=== PATIENT | male | born 1945 | race Caucasian/White ===

== ENCOUNTER → 2016-08-03 | Outpatient (CLI) | payer BC ==
[2016-08-03 15:49] LABS: CH 30.4; CHCM 32.6; HCT 41.3 % (39.0-53.0); HDW 2.29; HGB 13.4 gm/dL (13.0-17.5); MCH 30.3 pg (25.0-35.0); MCHC 32.4 g/dL (31.0-37.0); MCV 93.7 fL (80.0-100.0); Mean Platelet Volume 7.5; RDW 13.2 % (11.5-15.5); WBC 5.6 k/uL (3.8-10.6)
[2016-08-03 15:58] LABS: ALT 28 U/L (21-72); AST 34 U/L (17-59); Alkaline Phosphatase 77 U/L (38-126); Anion Gap 9 mmol/L; Blood Urea Nitrogen 25 mg/dL (9-20); Calcium 10.1 mg/dL (8.4-10.2); Carbon Dioxide 29 mmol/L (22-30); Chloride 103 mmol/L (98-107); Glucose 105 mg/dL (74-99); Non-African American GFR(MDRD) >60 (>60 ml/min/1.73 sqM); Potassium 5.5 mmol/L (3.5-5.1); Sodium 141 mmol/L (137-145); Total Bilirubin 0.7 mg/dL (0.2-1.3); Total Protein 7.8 g/dL (6.3-8.2)
== END ==
LOC: LABWHC1 15:10
PROVIDERS: ATTEND Surgery
DX: R19.7 Diarrhea, unspecified (principal)
CPT/HCPCS: 36415; 80053; 85027; 87045; 87046; 89055

== ENCOUNTER → 2016-11-03 | Outpatient (CLI) | payer BC ==
--- NOTE | 2016-11-03 13:00 | XR ---
EXAMINATION TYPE: XR abdomen 1V DATE OF EXAM: 11/03/2016 COMPARISON: NONE INDICATION: Flank pain increasing TECHNIQUE: Single view abdomen frontal projection FINDINGS: There is a normal bowel gas pattern. Psoas margins are normal. No organomegaly is present. Penile prosthesis is present. No suspicious calcifications are identified. Degenerative changes are through the lumbar facets. IMPRESSION: 1. Nonspecific abdomen.
== END | disposition home or self-care (01) ==
LOC: RADXRYALE 08:35
PROVIDERS: ATTEND Internal Medicine
DX: R10.9 Unspecified abdominal pain (principal)
CPT/HCPCS: 74000

== ENCOUNTER → 2017-07-19 | Outpatient (CLI) | payer BC ==
--- NOTE | 2017-07-19 15:11 | XR ---
EXAMINATION TYPE: XR chest 2V DATE OF EXAM: 07/19/2017 COMPARISON: None HISTORY: 72-year-old male cough and right shoulder pain TECHNIQUE: Frontal and lateral views FINDINGS: The cardiomediastinal silhouette, aorta, and pulmonary vasculature are within normal limits. Prominen t right first rib end. Lungs And pleural spaces are clear. Anterior endplate spondylosis upper to mid Lasix spine. IMPRESSION: No acute cardiopulmonary process.
--- NOTE | 2017-07-19 15:13 | XR ---
EXAMINATION TYPE: XR shoulder complete RT DATE OF EXAM: 07/19/2017 COMPARISON: NONE HISTORY: 72 year-old male right shoulder pain TECHNIQUE: 3 views FINDINGS: Apparent loss of the subacromial space may be due to projection. There is moderate degenerative knutson e at the AC joint. Prominent bony irregularity of the greater tuberosity. Degenerative spurring at th e glenohumeral joint. Probable loose body in the subcoracoid recess. No acute fracture or dislocation seen. IMPRESSION: 1. Apparent loss of the subacromial space may be secondary to positional artifact. If this space is t scott narrowed, findings would suggest a full-thickness rotator cuff tear. Consider MRI to further ankur luate. 2. There are changes of chronic rotator cuff tendinopathy along with moderate AC joint OA as well as underlying glenohumeral joint osteoarthrosis.
== END | disposition home or self-care (01) ==
LOC: RADXRYALE 14:45
PROVIDERS: ATTEND Internal Medicine
DX: M19.011 Primary osteoarthritis, right shoulder (principal); M67.813 Other specified disorders of tendon, right shoulder; R05 Cough
CPT/HCPCS: 71046

== ENCOUNTER → 2018-01-29 | Outpatient (CLI) | payer BC ==
--- NOTE | 2018-01-29 09:31 | ECHOF ---
Referral Reason:R07.89 Chest pressure MEASUREMENTS -------- HEIGHT: 172.7 cm WEIGHT: 93.0 kg BP: 135/65 RVIDd: 3.5 cm (< 3.3) IVSd: 1.2 cm (0.6 - 1.1) LVIDd: 4.6 cm (3.9 - 5.3) LVPWd: 1.2 cm (0.6 - 1.1) IVSs: 1.6 cm LVIDs: 3.3 cm LVPWs: 1.9 cm LA Diam: 3.7 cm (2.7 - 3.8) LAESV Index (A-L): 32.19 ml/m Ao Diam: 3.8 cm (2.0 - 3.7) AV Cusp: 2.3 cm (1.5 - 2.6) MV EXCURSION: 21.388 mm (> 18.000) MV EF SLOPE: 119 mm/s (70 - 150) EPSS: 0.1 cm MV E [place]: 0.67 m/s MV DecT: 252 ms MV A [place]: 0.60 m/s MV E/A Ratio: 1.12 RAP: 5.00 mmHg RVSP: 18.61 mmHg FINDINGS -------- Sinus rhythm. This was a technically good study. The left ventricular size is normal. There is borderline concentric left ventricular hypertrophy. Overall left ventricular systolic function is normal with, an EF between 55 - 60 %. The right ventricle is mildly enlarged. LA is midly dilated 29-33ml/m2. The right atrium is normal in size. The aortic valve is trileaflet and appears structurally normal. Trace amount of aortic regurgitatio n. The mitral valve is normal. Mild tricuspid regurgitation present. Right ventricular systolic pressure is normal at < 35 mmHg. Trace/mild (physiologic) pulmonic regurgitation. The aortic root is dilated measuring 3.8cm. Normal inferior vena cava with normal inspiratory collapse consistent with estimated right atrial pre ssure of 5 mmHg. There is no pericardial effusion. CONCLUSIONS -------- 1. Sinus rhythm. 2. This was a technically good study. 3. The left ventricular size is normal. 4. There is borderline concentric left ventricular hypertrophy. 5. Overall left ventricular systolic function is normal with, an EF between 55 - 60 %. 6. The right ventricle is mildly enlarged. 7. LA is midly dilated 29-33ml/m2. 8. The right atrium is normal in size. 9. The aortic valve is trileaflet and appears structurally normal. 10. Trace amount of aortic regurgitation. 11. The mitral valve is normal. 12. Mild tricuspid regurgitation present. 13. Right ventricular systolic pressure is normal at < 35 mmHg. 14. Trace/mild (physiologic) pulmonic regurgitation. 15. The aortic root is dilated measuring 3.8cm. 16. Normal inferior vena cava with normal inspiratory collapse consistent with estimated right atrial pressure of 5 mmHg. 17. There is no pericardial effusion. SOCIAL WORK CASE MANAGER: Leonora Baltazar RDCS
--- NOTE | 2018-01-29 09:37 | P.STRESS ---
- Stress Test Note Stress Test Results/Findings: Exam Performed: stress test Exam Date: 01/29/18 Reason for Exam: CHEST PAIN Height: 5 ft 8 in Weight: 92.986 kg Protocol: REAGAN Stage: 3 Duration of Exercise: 6:30 Resting Heart Rate: 59 Resting Blood Pressure: 123/74 Maximum Achieved Heart Rate: 129 Maximum Achieved Blood Pressure: 205/59 85% PMHR: 128 100% PMHR: 150 METS: 7.7 Technologist Comment: Stress Test Results/Findings: This is a 72-year-old gentleman being evaluated for chest pains and also as a preop evaluation. Stress data: Baseline EKG showed a sinus rhythm with normal MA interval and QRS duration. Patient said blood pressure is 123/74 with a pulse rate of 59 at rest. Patient walked on the Reagan protocol for 6 minutes and 30 seconds achieving a maximal heart rate of 129 with a blood pressure 158/82. Patient is achieved 86% of his predicted heart rate. EKGs taken during and after exercise did not reveal any significant changes from the baseline. Occasional PVCs couplets noted. Final impression: #1. Negative stress test #2. Occasional PVCs during this test. #3. Patient did not express any chest pain #4. Average exercise capacity.
--- NOTE | 2018-01-31 12:18 | EST ---
Stress Test Results/Findings: Exam Performed: stress test Exam Date: 01/29/18 Reason for Exam: CHEST PAIN Height: 5 ft 8 in Weight: 92.986 kg Protocol: REAGAN Stage: 3 Duration of Exercise: 6:30 Resting Heart Rate: 59 Resting Blood Pressure: 123/74 Maximum Achieved Heart Rate: 129 Maximum Achieved Blood Pressure: 205/59 85% PMHR: 128 100% PMHR: 150 METS: 7.7 Technologist Comment: Stress Test Results/Findings: This is a 72-year-old gentleman being evaluated for chest pains and also as a preop evaluation. Stress data: Baseline EKG showed a sinus rhythm with normal RI interval and QRS duration. Patient said blood pressure is 123/74 with a pulse rate of 59 at rest. Patient walked on the Reagan protocol for 6 minutes and 30 seconds achieving a maximal heart rate of 129 with a blood pressure 158/82. Patient is achieved 86% of his predicted heart rate. EKGs taken during and after exercise did not reveal any significant changes from the baseline. Occasional PVCs couplets noted. Final impression: #1. Negative stress test #2. Occasional PVCs during this test. #3. Patient did not express any chest pain #4. Average exercise capacity. MTDD
== END | disposition home or self-care (01) ==
LOC: RADECHMAIN 08:15
PROVIDERS: ATTEND Internal Medicine
DX: I07.1 Rheumatic tricuspid insufficiency (principal); I37.1 Nonrheumatic pulmonary valve insufficiency
CPT/HCPCS: 93017; 93306

== ENCOUNTER → 2018-04-17 | Outpatient (CLI) | payer BC ==
--- NOTE | 2018-04-17 11:38 | US ---
EXAMINATION TYPE: US kidneys/renal and bladder DATE OF EXAM: 04/17/2018 COMPARISON: CT 09/07/2014 CLINICAL HISTORY: R10.9 Acute right flank pain N20.0 Kidney stones. EXAM MEASUREMENTS: Right Kidney: 10.5 x 4.7 x 5.1 cm Left Kidney: 9.8 x 4.8 x 4.0 cm Right Kidney: No hydronephrosis. Multiple cystic areas visualized, largest measuring 5.2 x 5.6 x 5.1 cm Left Kidney: No hydronephrosis. No cystic or solid area visualized. Echogenic area visualized measuri ng 0.3 cm, possible nonobstructing foci Bladder: Probable diverticulum visualized measuring 4.8 x 5.1 x 5.2 cm Bilateral Jets seen: Yes IMPRESSION: No hydronephrosis is evident bilaterally. Possible 3 mm nonobstructing calculus left kidn ey on ultrasound. Prior CT showed small calculi bilaterally measuring under 3 mm in size would be dif ficult to visualize under ultrasound. Suspect passage of tiny calculus into right ureter not causing significant right-sided hydronephrosis.
== END | disposition home or self-care (01) ==
LOC: RADUSWWP 10:53
PROVIDERS: ATTEND Internal Medicine
DX: R10.9 Unspecified abdominal pain (principal)
CPT/HCPCS: 76770

== ENCOUNTER → 2018-05-26 | Outpatient (CLI) | payer BC ==
--- NOTE | 2018-05-26 14:08 | MR ---
EXAMINATION TYPE: MR brain wo/w con DATE OF EXAM: 05/26/2018 COMPARISON: None HISTORY: Diplopia TECHNIQUE: Multiplanar, multisequence images of the brain and brainstem is performed without and with IV contras t, utilizing 9.5 mL intravenous Gadavist . FINDINGS: Diffusion weighted images demonstrate no evidence of a recent infarct or other diffusion ab normality. Craniocervical junction is maintained. Sella turcica has a normal appearance. There is no enhancing mass or mass effect. No midline shift. There is changes of chronic sinusitis. Mild generalized degenerative change with numerous focal areas of abnormal signal the white matter are not as cystic but most typical remote microvascular ischemia . No cerebellopontine angle mass. There is a trace amount of fluid surrounding the optic nerves. IMPRESSION: 1. Degenerative and nonspecific white matter changes most typical remote microvascular ischemia. 2. Trace amount of fluid surrounding the optic nerves. This can occasionally be associated with benig n increased intracranial hypertension correlate clinically. 3. Changes of chronic sinusitis
== END | disposition home or self-care (01) ==
LOC: RADMRIMAIN 08:17
PROVIDERS: ATTEND Ophthalmology
DX: R90.89 Other abnormal findings on diagnostic imaging of central nervous system (principal)
CPT/HCPCS: 82565; 70553; 36415; A9585

== ENCOUNTER → 2023-06-15 | Outpatient (CLI) | payer MEDICARE, BC ==
--- NOTE | 2023-06-15 11:05 | US ---
EXAMINATION TYPE: US abdomen complete DATE OF EXAM: 06/15/2023 COMPARISON: Renal US 04/17/2018 CLINICAL INDICATION: Male, 78 years old with history of R10.9 UNSPECIFIED ABDOMINAL PAIN; TECHNIQUE: Epigastric pain x few months FINDINGS: EXAM MEASUREMENTS: Liver Length: 13.2 cm Gallbladder Wall: 0.2 cm CBD: 0.3 cm Spleen: 9.7 cm Right Kidney: 12.2 x 4.0 x 4.2 cm Left Kidney: 10.0 x 4.8 x 3.9 cm [employer]ILER [employer] WORKER NOTES: Pancreas: Tail obscured by overlying bowel gas Liver: wnl Gallbladder: wnl Evidence for sonographic Solorzano's sign: No CBD: wnl Spleen: wnl Right Kidney: Multiple cysts redemonstrated, largest = 6.7 x 6.0 x 5.9 cm Left Kidney: Subcentimeter cyst noted Upper IVC: wnl Abd Aorta: wnl The liver is homogenous. The intrahepatic portion of the IVC and proximal abdominal aorta are within normal limits. There is no evidence of cholelithiasis. Common bile duct is unremarkable. The visu alized portions of the pancreas are homogenous. The spleen is unremarkable. Kidneys are symmetric a nd free of hydronephrosis. IMPRESSION: Renal cystic changes noted.
== END | disposition home or self-care (01) ==
LOC: RADUSWWP 10:21
PROVIDERS: ATTEND Internal Medicine
DX: N28.1 Cyst of kidney, acquired (principal)
CPT/HCPCS: 76700

== ENCOUNTER → 2023-06-22 | Outpatient (CLI) | payer MEDICARE, BC ==
[2023-06-22 14:29] LABS: African American GFR (CKD) 63 (>60 ml/min/1.73 sqM); Blood Urea Nitrogen 28 mg/dL (9-20); Non-African American GFR(CKD) 55 (>60 ml/min/1.73 sqM)
--- NOTE | 2023-06-22 16:09 | CT ---
EXAMINATION: CT ABDOMEN AND PELVIS WITHOUT AND WITH IV CONTRAST DATE OF EXAMINATION: 06/22/2023. COMPARISON: None available. INDICATION: Generalized abdominal pain. PROCEDURE: Axial CT of the abdomen and pelvis was performed without and with contrast and sagittal and coronal reformatted images were performed. CT dose lowering techniques were used, to include: aut omated exposure control, adjustment for patient size, and/or use of iterative reconstruction. 80 mL o f Isovue-300 was given intravenously. FINDINGS: LOWER CHEST : The visualized lung bases are clear. There are no pleural or pericardial effusions. ABDOMEN: Liver and Biliary system: Subcentimeter hypodensity is seen within the left lobe of liver that is to o small fully characterize. The liver otherwise appears unremarkable. Adrenal glands: Normal. Kidneys and ureters: 6.3 cm simple cyst in the upper pole of the right kidney 3 mm nonobstructing sto ne in the upper pole the left kidney. 1.6 cm simple cyst in the interpolar region of the left kidney. The kidneys otherwise appear unremarkable Spleen: Normal. Pancreas: Normal. Gallbladder: Normal. Lymph nodes, Peritoneum and mesentery: There is no mesenteric or retroperitoneal lymphadenopathy. Gastrointestinal tract: There are no dilated loops of bowel or free intraperitoneal air. There is nonspecific diffuse thickening of the gastric wall of indeterminate etiology. Malignancy would be in the differential diagnosis and considered direct visualization. There is mild to moderate descending colonic and sigmoid colonic diverticulosis without evidence of diverticulitis. Aorta/IVC: There is mild vascular calcification throughout the abdominal aorta without evidence of aneurysmal dilation or dissection. IVC normal. Abdominal wall: Normal. PELVIS: Fluid: There is no free fluid in the pelvis. Lymph Nodes: There is no pelvic or inguinal lymphadenopathy.. Urinary bladder: Normal. BONES: Multilevel degenerative disc and facet changes are seen throughout the spine. There are no ac chaim osseous abnormalities. ADDITIONAL SIGNIFICANT FINDINGS: Penile implant is seen. IMPRESSION: 1. Diffuse thickening of the gastric wall is of indeterminate etiology. Malignancy would be in the di fferential diagnosis and must be excluded. Direct visualization and GI consult recommended. Gastritis would be a consideration as well, however there is no significant surrounding inflammatory changes. 2. Nonobstructing left renal stone. 3. Diverticulosis without evidence of diverticulitis.
== END | disposition home or self-care (01) ==
LOC: RADCTMAIN 13:46
PROVIDERS: ATTEND Internal Medicine
DX: K57.30 Diverticulosis of large intestine without perforation or abscess without bleeding (principal); K31.89 Other diseases of stomach and duodenum; N20.0 Calculus of kidney; N28.1 Cyst of kidney, acquired
CPT/HCPCS: 82565; 84520; 74178; 36415; Q9967

== ENCOUNTER → 2023-12-26 | Outpatient (CLI) | payer MEDICARE, BC | END | disposition home or self-care (01) | LOC: LABPRL 10:45 | PROVIDERS: ATTEND Internal Medicine Hematology & Oncology | DX: D64.81 Anemia due to antineoplastic chemotherapy (principal) | CPT/HCPCS: 86850; 86900; 86901 ==

== ENCOUNTER 2024-02-11 13:21 | Emergency (ER) | payer MEDICARE, BC ==
[2024-02-11 13:30] VITALS: TEMP 99
--- NOTE | 2024-02-11 14:27 | US ---
EXAMINATION TYPE: US venous doppler duplex LE LT DATE OF EXAM: 02/11/2024 2:21 PM COMPARISON: NONE CLINICAL INDICATION: Male, 78 years old with history of pain; No hx of DVT. Pain. SIDE PERFORMED: Left TECHNIQUE: The lower extremity deep venous system is examined utilizing real time linear array sonog axel with graded compression, color doppler sonography, and spectral doppler. VESSELS IMAGED: Common Femoral Vein Deep Femoral Vein Greater Saphenous Vein * Femoral Vein Popliteal Vein Small Saphenous Vein * Proximal Calf Veins (* superficial vessels) Left Leg: No evidence of DVT. IMPRESSION: [facility], , 02/11/2024 2:24 PM
[2024-02-11 14:33] VITALS: BP 147/69; PULSE 64; RESP 18
--- NOTE | 2024-02-11 14:58 | XR ---
EXAMINATION TYPE: XR tibia fibula LT DATE OF EXAM: 02/11/2024 2:51 PM CLINICAL INDICATION: Male, 78 years old with history of pain; [facility] COMPARISON: None TECHNIQUE: XR tibia fibula LT; examined in AP and lateral projections. FINDINGS: No evidence of any acute osseous pathology, joint dislocation, or soft tissue swelling is n oted. Total knee arthroplasty changes appear intact. Calcaneal Achilles spurring present. Mild diffus e soft tissue swelling. Multifocal degeneration changes of the joints of the foot with joint space na rrowing and osteophyte formation. IMPRESSION: 1. No evidence of acute fracture. 2. Diffuse soft tissue swelling throughout the leg without evidence of osseous erosion. [facility], , 02/11/2024 2:56 PM
--- NOTE | 2024-02-11 14:59 | XR ---
EXAMINATION TYPE: XR foot complete LT DATE OF EXAM: 02/11/2024 2:50 PM CLINICAL INDICATION: Male, 78 years old with history of pain; COMPARISON: None TECHNIQUE: XR foot complete LT examined in the AP, oblique, and lateral projections. FINDINGS: Soft tissue swelling present. No evidence of any acute osseous pathology. Calcaneal plantar spurring is present. Calcaneal Achilles enthesophyte. Multifocal degeneration changes throughout the joints of the foot with osteophyte formation and joint space narrowing. IMPRESSION: 1. No evidence of acute fracture. 2. Diffuse soft tissue swelling throughout the foot correlate for systemic causes. 3. Multifocal degeneration changes throughout the joints of the foot. [facility], , 02/11/2024 2:57 PM
--- NOTE | 2024-02-11 15:04 | ED ---
Lower Extremity Injury HPI - General Chief Complaint: Extremity Injury, Lower Stated Complaint: Leg swelling Time Seen by Provider: 02/11/24 13:30 Source: patient, RN notes reviewed Mode of arrival: ambulatory Limitations: no limitations - History of Present Illness Initial Comments: 78-year-old male presents emergency department chief complaint of left leg pain and swelling. Patient states he had an injury recently and states that there is now bruising, swelling and is concerned about DVT. No history of DVT denies any chest pain or shortness of breath no other complaints. - Related Data Home Medications Medication Instructions Recorded Confirmed Escitalopram [Lexapro] 10 mg PO HS 11/27/15 01/05/24 buPROPion SR [Wellbutrin Sr] 150 mg PO HS 11/27/15 01/05/24 lamoTRIgine [LaMICtal] 150 mg PO HS 11/27/15 01/05/24 Allergies Allergy/AdvReac Type Severity Reaction Status Date / Time No Known Allergies Allergy Verified 02/11/24 13:30 Review of Systems ROS Statement: Those systems with pertinent positive or pertinent negative responses have been documented in the HPI. ROS Other: All systems not noted in ROS Statement are negative. Past Medical History Past Medical History: Cancer, Osteoarthritis (OA) Additional Past Medical History / Comment(s): restless leg, esophageal/gastric cancer History of Any Multi-Drug Resistant Organisms: None Reported Past Surgical History: Back Surgery, Hernia Repair, Joint Replacement, Orthopedic Surgery Additional Past Surgical History / Comment(s): jabier shoulder arthroscopy, left knee arthroscopy, jabier eye surgery for glaucoma Past Anesthesia/Blood Transfusion Reactions: No Reported Reaction Past Psychological History: Anxiety, Bipolar, Depression Smoking Status: Never smoker Past Alcohol Use History: Rare Past Drug Use History: None Reported - Past Family History Father Family Medical History: Cancer Brother(s) Family Medical History: Cancer General Exam Limitations: no limitations General appearance: alert, in no apparent distress Head exam: Present: atraumatic, normocephalic, normal inspection Neck exam: Present: normal inspection, full ROM. Absent: tenderness, meningismus, lymphadenopathy Respiratory exam: Present: normal lung sounds bilaterally. Absent: respiratory distress, wheezes, rales, rhonchi, stridor Cardiovascular Exam: Present: regular rate, normal rhythm, normal heart sounds. Absent: systolic murmur, diastolic murmur, rubs, gallop, clicks GI/Abdominal exam: Present: soft, normal bowel sounds. Absent: distended, tenderness, guarding, rebound, rigid Extremities exam: Present: other (Use lower extremities on the left, ecchymosis noted neurovascular intact) Course Vital Signs 02/11/24 02/11/24 13:26 14:31 Temperature 99.0 F Pulse Rate 77 64 Respiratory 20 18 Rate Blood Pressure 146/68 147/69 O2 Sat by Pulse 97 96 Oximetry Medical Decision Making - Medical Decision Making Was pt. sent in by a medical professional or institution (, [facility], PAINTER MIRROR, urgent care, hospital, or residential...) When possible be specific @ -No Did you speak to anyone other than the patient for history (EMS, parent, family, police, friend...)? What history was obtained from this source @ -No Did you review nursing and triage notes (agree or disagree)? Why? @ -I reviewed and agree with nursing and triage notes Were old charts reviewed (outside hosp., previous admission, EMS record, old EKG, old radiological studies, urgent care reports/EKG's, residential records)? Report findings @ -No old charts were reviewed Differential Diagnosis (chest pain, altered mental status, abdominal pain women, abdominal pain men, vaginal bleeding, weakness, fever, dyspnea, syncope, headache, dizziness, GI bleed, back pain, seizure, CVA, palpatations, mental health, musculoskeletal)? @ -Edema, DVT, leg fracture, ecchymosis, hematoma EKG interpreted by me (3pts min.). @ -None X-rays interpreted by me (1pt min.). @ -X-ray left tib-fib shows no acute fracture or malalignment soft tissue swelling X-ray left foot no acute fracture no osseous lesion CT interpreted by me (1pt min.). @ -None done U/S interpreted by me (1pt. min.). @ -7 left leg venous Doppler negative for acute DVT What testing was considered but not performed or refused? (CT, X-rays, U/S, labs)? Why? @ -None What meds were considered but not given or refused? Why? @ -None Did you discuss the management of the patient with other professionals (professionals i.e. , [facility], PAINTER MIRROR, lab, RT, psych nurse, social science analyst, retail business manager, teacher, motor equipment commanding officer, case therapist)? Give summary @ -No Was smoking cessation discussed for >3mins.? @ -No Was critical care preformed (if so, how long)? @ -No Were there social determinants of health that impacted care today? How? (Homelessness, low income, unemployed, alcoholism, drug addiction, transportation, low edu. Level, literacy, decrease access to med. care, group home, rehab)? @ -No Was there de-escalation of care discussed even if they declined (Discuss DNR or withdrawal of care, Hospice)? DNR status @ -No What co-morbidities impacted this encounter? (DM, HTN, Smoking, COPD, CAD, Cancer, CVA, ARF, Chemo, Hep., AIDS, mental health diagnosis, sleep apnea, morbid obesity)? @ -None Was patient admitted / discharged? Hospital course, mention meds given and route, prescriptions, significant lab abnormalities, going to OR and other pertinent info. @ -Discharge patient presented for left leg pain swelling ecchymosis after injury patient has negative imaging. Patient has contusion will be discharged in stable condition Undiagnosed new problem with uncertain prognosis? @ -No Drug Therapy requiring intensive monitoring for toxicity (Heparin, Nitro, Insulin, Cardizem)? @ -No Were any procedures done? @ -No Diagnosis/symptom? @ -Left leg edema Acute, or Chronic, or Acute on Chronic? @ -Acute Uncomplicated (without systemic symptoms) or Complicated (systemic symptoms)? @ -uncomplicated Side effects of treatment? @ -No Exacerbation, Progression, or Severe Exacerbation? @ -No Poses a threat to life or bodily function? How? (Chest pain, USA, OR, pneumonia, PE, COPD, DKA, ARF, appy, cholecystitis, CVA, Diverticulitis, Homicidal, Suicidal, threat to staff... and all critical care pts) @ -No Disposition Clinical Impression: Leg edema, left, Traumatic ecchymosis of left lower leg Disposition: HOME SELF-CARE Condition: Stable Instructions (If sedation given, give patient instructions): Leg Edema (ED) Additional Instructions: Please return to the Emergency Department if symptoms worsen or any other concerns. Is patient prescribed a controlled substance at d/c from ED?: No Referrals: Adriana Norton MD [Primary Care Provider] - 1-2 days Time of Disposition: 15:04
== END 2024-02-11 15:21 | disposition home or self-care (01) ==
LOC: EC 13:21
CPT/HCPCS: 99284

== ENCOUNTER → 2024-02-14 | Outpatient (CLI) | payer MEDICARE, BC ==
--- NOTE | 2024-02-14 11:14 | XR ---
EXAMINATION TYPE: XR elbow complete LT DATE OF EXAM: 02/14/2024 CLINICAL HISTORY: pain TECHNIQUE: Frontal, lateral and oblique images of the left elbow are obtained. COMPARISON: None. FINDINGS: There is no acute fracture/dislocation evident of the elbow. Moderate degenerative narrow ing about the elbow with spurring and loose bodies noted. No abnormal fat pad signs are seen. The ov erlying soft tissue appears unremarkable. IMPRESSION: There is no acute fracture or dislocation of the elbow. ICD 10 NO FRACTURE, INITIAL EVALUATION [facility], , 02/14/2024 11:12 AM
== END | disposition home or self-care (01) ==
LOC: RADXRYALE 10:35
PROVIDERS: ATTEND Internal Medicine
DX: M70.22 Olecranon bursitis, left elbow (principal)

== ENCOUNTER → 2024-03-19 | Outpatient (CLI) | payer MEDICARE, BC ==
--- NOTE | 2024-03-20 07:56 | XR ---
EXAMINATION TYPE: XR lumbosacral spine min 4V DATE OF EXAM: 03/19/2024 5:04 PM COMPARISON: None. CLINICAL INDICATION: Male, 79 years old with history of [id number] LBP, fall from ladder 10 days prior TECHNIQUE: 5 view(s) obtained. FINDINGS: There is diffuse disc space narrowing throughout the lumbar spine. L5-S1 L3-4. Grade 1 spondylolisthe sis of L4 anteriorly on L5 is present. Spondylolysis present. Very large anterior vertebral body spur ring is present T11-12. No spondylolytic defects are evident. There is 5 lumbar type vertebral bodies . There may be attempted lumbarization of S1 IMPRESSION: 1. Degenerative disc changes. 2. No acute or subacute osseous abnormality lumbar spine [facility], , 03/20/2024 7:54 AM
== END | disposition home or self-care (01) ==
LOC: RADXRYALE 16:49
PROVIDERS: ATTEND Internal Medicine
DX: M51.360 Other intervertebral disc degeneration, lumbar region with discogenic back pain only (principal)
CPT/HCPCS: 72110

== ENCOUNTER → 2024-08-02 | Outpatient (CLI) | payer MEDICARE, BC ==
--- NOTE | 2024-08-06 08:22 | XR ---
EXAMINATION TYPE: XR chest 2V DATE OF EXAM: 08/02/2024 11:18 AM COMPARISON: Chest radiographs from 07/07/2022 CLINICAL INDICATION: Male, 79 years old with history of [id number] PRE OP; [facility] TECHNIQUE: XR chest 2V Frontal and lateral views of the chest. FINDINGS: Lungs/Pleura: There is no evidence of pleural effusion, focal consolidation, or pneumothorax. Pulmonary vascularity: Unremarkable. Heart/mediastinum: Cardiomediastinal silhouette is unremarkable. Musculoskeletal: No acute osseous pathology. Other findings: None Lines/Tubes: [id number] projecting over the right hemithorax with distal tip at the cavoatrial junction. IMPRESSION: No acute cardiopulmonary disease/process. [facility], , 08/06/2024 8:19 AM
== END | disposition home or self-care (01) ==
LOC: RADXRYALE 10:53
PROVIDERS: ATTEND Internal Medicine
DX: Z01.818 Encounter for other preprocedural examination (principal)
CPT/HCPCS: 71046